=== PATIENT | female | born 1960 | race Caucasian/White ===

== ENCOUNTER 2017-05-20 14:03 | Outpatient (CLI) | payer OTHER ==
--- NOTE | 2017-05-23 14:53 | Mammography Report ---
DIGITAL SCREENING MAMMOGRAM: 05/20/2017 CLINICAL INDICATION: A 57-year-old for screening. COMPARISON: 10/2014, 05/2011, 02/2009. TECHNIQUE: Routine CC and MLO projections were obtained of the breasts. FINDINGS: The breasts again demonstrate heterogeneously dense fibroglandular parenchyma bilaterally. There is shifting pattern of circumscribed nodules bilaterally, compatible with waxing and waning cysts. Coarse and punctate, typically benign calcifications are present. No suspicious masses, clustered microcalcifications, or regions of architectural distortion are identified. IMPRESSION: BENIGN FINDINGS. RECOMMENDATION: Routine annual screening unless otherwise clinically indicated. BIRADS CATEGORY 2 - BENIGN FINDINGS. CT DOSE REDUCTION STATEMENT In accordance with CT protocol optimization, one or more of the following dose reduction techniques were utilized for this exam: automated exposure control, adjustment of mA and/or KV based on patient size, or use of iterative reconstructive technique. TD: 05/23/2017 14:52
== END 2017-05-20 14:04 | disposition home or self-care (01) ==
LOC: DI.S 14:03
PROVIDERS: ATTEND Family Medicine
DX: Z12.31 Encounter for screening mammogram for malignant neoplasm of breast (principal)
CPT/HCPCS: 77067

== ENCOUNTER 2020-08-18 14:43 | Outpatient (CLI) | payer BC, OTHER ==
--- NOTE | 2020-08-19 07:56 | Mammography Report ---
BILATERAL DIGITAL SCREENING MAMMOGRAM 3D/2D: 08/18/2020 CLINICAL: Routine screening. Prior mammograms 05/20/2017, 11/04/2014. Prior ultrasound bilateral 11/04/2014. The tissue of both gama sts is heterogeneously dense. This may lower the sensitivity of mammography. Multiple bilateral circumscribed benign masses. On prior ultrasound these were shown to be benign cys ts. These cysts have waxed and waned over the past few exams. No significant calcifications. IMPRESSION: BENIGN There is no mammographic evidence of malignancy. A 1 year screening mammogram is recommended. This exam was interpreted at Station ID: [id number]. NOTE: For mammograms, a report in lay terms will be sent to the patient. Approximately 15% of breast malignancies will not be visualized mammographically. In the management of a palpable breast mass, a negative mammogram must not discourage biopsy of a clinically suspicious lesion. Electronically Signed By: Darren Pompa M.D. slc/:08/18/2020 17:10:56 ACR BI-RADS Category 2: Benign Finding(s) 3342F PARENCHYMAL PATTERN: (D) - The breast(s) demonstrate(s) heterogeneously dense fibroglandular [place] [place]. BI-RADS CATEGORY: (2) - 2 RECOMMENDATION: (ANNUAL) - Recommend routine annual screening mammography. [id number] 1 year screening LATERALITY: (B)
== END 2020-08-18 14:44 | disposition home or self-care (01) ==
LOC: DI 14:43
PROVIDERS: ATTEND Nurse Practitioner Family
DX: Z12.31 Encounter for screening mammogram for malignant neoplasm of breast (principal)